=== PATIENT | female | born 1975 | race Two or more races ===

== ENCOUNTER → 2016-12-19 | Outpatient (CLI) | payer OTHER ==
--- NOTE | ~2016-12-19 | MY11 ---
[facility] A Service of [facility] RADIOLOGY TEXT RESULTS PATIENT: ED PEARSON LOCATION: [facility] : 77 UNIT #: [id number] AGE: [address]: JULIANNE ANTOINE APRN SEX: F ORDER DR: [id number] [facility] [address] [place], [place] [address] [id number] O MR#: [id number] Acc #: [id number] NAME: ED PEARSON : 1975 SEX: F STUDY DATE/TIME: 12/19/2016 16:43 UNIT: [facility] ROOM: STUDY DESCRIPTION: MY Mammogram Screening Dig Mayito Attending Physician: Марина Antoine M.D. Referring Physician: Марина Antoine M.D. Ordering Physician: Марина Antoine M.D. Primary Care Physician: Westley Crane M.D. MEDICAL IMAGING REPORT This report is preliminary unless electronic signature is present EXAM Bilateral digital screening mammogram with CAD. DATE OF EXAM 12/19/2016 INDICATION 41-year-old female for routine screening. No reported problems. No personal or family history of breast cancer. No surgeries. TECHNIQUE CC and MLO views of the breast were obtained and reviewed with an FDA-approved CAD device. COMPARISON There are no comparisons. This is her baseline study. FINDINGS The breast parenchyma is composed of scattered fibroglandular densities. The pattern is symmetric. There is no dominant nodule mass or suspicious clustered microcalcifications. IMPRESSION Negative baseline screening mammogram. 1 year followup recommended. Patients over the age of 40 are entered into a reminder system with target due date for the next mammogram. A result letter will also be sent to the patient. BIRADS: 1 Negative. Dictated by... Inocencio Reyna M.D. [facility] A Service [facility] RADIOLOGY TEXT RESULTS PATIENT: ED PEARSON LOCATION: [facility] : 77 UNIT #: [id number] AGE: [address]: JULIANNE ANTOINE APRN SEX: F ORDER DR: THIS IS AN ELECTRONICALLY VERIFIED REPORT Inocencio Reyna M.D. at 12/20/2016 7:19 AM Obed TD: 12/19/2016 21:55 JOB #: [id number] MEDICAL IMAGING REPORT COPY
== END | disposition home or self-care (01) ==
LOC: CWCC 16:29
DX: Z12.31 Encounter for screening mammogram for malignant neoplasm of breast (principal)
CPT/HCPCS: G0202